=== PATIENT | male | born 1960 | race African-American/Black ===

== ENCOUNTER 2018-10-06 13:00 | Observation (INO) ==
[2018-10-06] MEDS ORDERED: NS 1,000 ML IV ONE (13:36)
[2018-10-06 13:37] LABS: URINE SOURCE CLEAN CATCH
[2018-10-06 13:41] LABS: BILIRUBIN URINE NEGATIVE (NEGATIVE); BLOOD URINE SMALL (NEGATIVE); COLOR YELLOW; GLUCOSE URINE TRACE mg/dL (NEGATIVE); KETONE URINE TRACE mg/dL (NEGATIVE); LEUKOCYTES URINE MODERATE (NEGATIVE); NITRITE URINE NEGATIVE (NEGATIVE); PROTEIN URINE 100 mg/dL (NEGATIVE); SP GRAVITY URINE 1.021; TURBIDITY URINE CLEAR (CLEAR); UROBILINOGEN URINE 4 mg/dL (NORMAL)
[2018-10-06 13:43] LABS: UR EPITHELIAL CELLS <10 /HPF (<10); URINE BACTERIA 4+ /HPF; URINE RBC <10 /HPF (<10); URINE WBC 20-40 /HPF (<10)
[2018-10-06] MEDS ORDERED: LEVAQUIN 500 MG/D5W 500 MG/100 ML IVPB IV ONE (13:43)
[2018-10-06] MEDS ORDERED: TYLENOL PO ONE (13:43)
--- NOTE | 2018-10-06 13:59 | Diag Imaging Result Doc PS360 ---
CHEST-1 VIEW - 10/06/2018 INDICATION: fever COMPARISON: None FINDINGS: There is cardiomegaly and pulmonary vascular congestion. No infiltrates or edema. No pneumothorax or pleural effusion. IMPRESSION: Cardiomegaly and pulmonary vascular congestion. Electronically signed by Vinicio Stokes 10/06/2018 1:57 PM
[2018-10-06 14:34] LABS: BASO# 0.02 X1000 (0.0-0.2); BASO% 0.2 % (0.0-0.8); EOS# 0.05 X1000 (0.0-0.7); EOS% 0.5 % (0.0-10.0); HEMATOCRIT 45.6 % (42.0-52.0); HEMOGLOBIN 15.6 g/dL (14.0-18.0); IMM GRAN# 0.02 X1000 (0.0-0.04); IMM GRAN% 0.2 % (0.0-0.5); LYMPH# 1.46 X1000 (1.2-3.4); LYMPH% 13.4 % (20.5-51.1); MCH 30.1 PG (27-31); MCHC 34.2 g/dL (33-37); MCV 87.9 FL (81-99); MONO# 0.69 X1000 (0.11-0.59); MONO% 6.3 % (1.7-9.3); MPV 10.1 FL (7.4-10.4); NEUT# 8.63 X1000 (1.4-6.5); NEUT% 79.4 % (42.2-75.2); PLT 210 X1000 (130-400); RBC 5.19 XMIL (4.7-6.1); RDW 13.8 % (11.5-14.5); WBC 10.87 X1000 (4.8-10.8)
[2018-10-06 15:01] LABS: ALB/GLOB RATIO 0.8; ALBUMIN 3.3 g/dL (3.5-5.0); CALCIUM 8.3 mg/dL (8.8-10.2); CREATININE 2.2 mg/dL (0.7-1.2); POTASSIUM 4.1 mmol/L (3.5-5.1); TOTAL BILIRUBIN 0.95 mg/dL (0.20-1.00); TOTAL PROTEIN 7.2 g/dL (6.3-8.3)
--- NOTE | 2018-10-06 15:26 | PROVIDER DOCUMENTATION ---
This chart was entered by Kelby Avery Scribe, acting as scribe for Cheng Hernandez MD. HPI-General Adult - General Chief Complaint: Male Stated Complaint: KIDNEY DISEASE/ISSUES Time Seen by Provider: 10/06/18 13:10 Source: patient Allergies/Adverse Reactions: Patient Allergies Allergy/AdvReac Type Severity Reaction Status Date / Time No Known Allergies Allergy Verified 10/06/18 14:45 - History of Present Illness -Gen Adult Nature of Presenting Problems: Pt is a 58 yo HIV+ ([employer] [facility]) M who presents to the ED with a CC of dysuria and fever. Pt states he began having pain when trying to urinate yesterday. Pt states the pain was so bad "It brought me to tears." Pt describes the pain as a burning sensation. Pt states a hx of stage three kidney disease and states he was diagnosed three years ago. Pt denies a hx of kidney infection, kidney stones, or any surgeries. Upon examination the pt had a irregular heart rate. Pt also complains of becoming SOB without any chest pain since yesterday. Location of Pain/Injury: reports: abdomen Pain Radiation: reports: no radiation Quality of Pain: reports: burning Severity: reports: mild Onset/Duration: reports: 24 hours ago Timing: reports: still present Associated Symptoms: reports: fever/chills (Fever), genitourinary problems, headaches, shortness of breath. denies: back/neck pain, chest pain, constipation, cough, diarrhea, loss of appetite, rash, sensory/motor loss, swelling/mass in abdomen, syncope, vomiting Similar Symptoms Previously?: Yes Recently seen or treated by another doctor?: No Review of Systems - Adult - REVIEW OF SYSTEMS - ADULT Constitutional: reports: see HPI, fever. denies: chills, fatique, night sweats, weight loss Eyes: reports: no symptoms reported Ears, Nose, Mouth & Throat: reports: no symptoms reported Cardiovascular: reports: no symptoms reported, see HPI Respiratory: reports: see HPI, shortness of breath. denies: cough, excessive sputum production, hemoptysis, wheezing Gastrointestinal: reports: see HPI, abdominal pain. denies: hematemesis, diarrhea, difficulty swallowing, nausea, rectal bleeding Genitourinary: reports: see HPI, dysuria, flank pain. denies: frequent UTI's, hematuria, urgency Musculoskeletal: reports: see HPI. denies: back pain, muscle weakness, neck pain Integumentary: reports: no symptoms reported Neurological: reports: see HPI, headache/migraines (Headache). denies: ataxia, dizziness/vertigo, loss of balance, numbness, paresthesia, slurred speech Psychiatric: reports: no symptoms reported Endocrine: reports: no symptoms reported Hematologic/Lymphatic: reports: no symptoms reported Allergic/Immunologic: reports: no symptoms reported All Other Systems: Reviewed and Negative Past History - Adult - PAST MEDICAL HISTORY-ADULT Review of Records: reports: Old Records Reviewed, Nursing Assessment Review, Medications Reviewed, Social history reviewed & non-contributory. Major Childhood Illnesses: reports: denies history Cardiovascular: reports: denies history Respiratory: reports: denies history Gastrointestinal: reports: denies history Obstetrical/Gynecological: reports: denies history Genitourinary: reports: denies history Musculoskeletal: reports: denies history Neurological: reports: denies history Endocrine/Immune: reports: denies history Other Conditions: reports: denies history - IMMUNIZATION STATUS Childhood Immunizations: See Nurse Assessment Flu Vaccine: See Nurse Assessment - FAMILY HISTORY Family History: reviewed, not pertinent Physical Exam-General - PHYSICAL EXAM-ADULT Initial Vital Signs Reviewed: Yes - CONSTITUTIONAL General Appearance: alert, mild distress - EYES Eyes: PERRL/EOMI - NECK Neck: non-tender, full range of motion. negative: C-spine tenderness, limited range of motion, lymphadenopathy, meningismus - RESPIRATORY Respiratory: chest non-tender, lungs clear, normal breath sounds, no pleuratic chest pain, no respiratory distress, no accessory muscle use. negative: resp iratory distress, decreased breath sounds, crackles, rales, stridor, wheezing - CARDIOVASCULAR Cardiovascular: normal peripheral pulses, no edema, no gallop, no JVD, no murmur . negative: JVD, bradycardia, diastolic murmur, friction rub - GASTROINTESTINAL (ABDOMEN) Abdominal Exam: soft, tenderness. negative: distended, guarding, rebound, hernia, mass, hepatomegaly, splenomegaly - MUSCULOSKELETAL Extremity: normal range of motion, non-tender, normal gait. negative: deformity, erythema, inflammation, pulse deficit, pedal edema - SKIN Integumentary: normal color, normal turgor, warm/dry. negative: abrasion(s), j aundice, laceration(s), mottled, pallor - NEUROLOGIC Neurologic: grossly normal, no motor/sensory deficits. negative: aphasia, EOM palsy, facial droop, focal weakness, motor weakness, sensory deficit - PSYCHIATRIC Psych/Mental Status: normal mood/affect, normal thought content, normal thought process, oriented x 3. negative: disoriented x 3, anxious, disheveled, depressed affect, paranoid Progress - PLAN OF CARE/RESULTS Progress/Plan/Lab Results: Vital Signs - 8 hr 10/06/18 13:06 Temperature 100.6 F H Pulse Rate 106 H Respiratory Rate 18 Blood Pressure 154/78 O2 Sat by Pulse Oximetry 95 Laboratory Results - last 24 hr 10/06/18 13:15 Urine Source CLEAN CATCH Urine Color YELLOW Urine Turbidity CLEAR Urine pH 6.0 Ur Specific Girard 1.021 Urine Protein 100 A Ur Glucose (Stick) TRACE Ur Ketones (Stick) TRACE A Urine Blood SMALL A Urine Nitrite NEGATIVE Urine Bilirubin NEGATIVE Urobilinogen Dipstick 4 A Urine Leukocytes MODERATE A Urine WBC (Auto) 20-40 A Urine RBC (Auto) <10 U Epithel Cells (Auto) <10 Urine Bacteria (Auto) 4+ Orders Category Date Time Status CHEST-1 VIEW [RAD] Stat Exams 10/06/18 13:35 Taken BLOOD CULTURE [BLDCUL] Stat Lab 10/06/18 13:35 Uncollected CBC WITH DIFF [HEME] Stat Lab 10/06/18 13:35 Uncollected COMPREHENSIVE METABOLIC PANEL [CHEM] Stat Lab 10/06/18 13:35 Uncollected LACTATE, PLASMA [CHEM] Stat Lab 10/06/18 13:35 Uncollected URINALYSIS W/POSS RFLX CULT [URINALYSIS] Stat Lab 10/06/18 13:15 Completed URINE CULTURE [RM] Routine Lab 10/06/18 13:52 Received 0.9% Sodium Chloride Inj [Ns] 1,000 ml Med 10/06/18 13:36 Active IV 999 mls/hr Acetaminophen [Tylenol] Med 10/06/18 13:43 Discontinued 650 mg PO NOW ONE Levofloxacin 500 mg/D5w [Levaquin 500 mg/D5w] Med 10/06/18 13:43 Active 500 mg in 100 ml IV NOW Result Diagrams: 10/06/18 14:23 10/06/18 14:23 - REASSESSMENT Reassessment #1 Time Reassessed: 15:24 Status: unchanged (labs confirm UTI, no evidence of sepsis per lactate, creat likely baseline per pt PMHx: 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 No infiltrates or edema. No pneumothorax or pleural effusion. IMPRESSION: Cardiomegaly and pulmonary vascular congestion. Electronically signed by Vinicio Stokes 10/06/2018 1:57 PM 10/06/18 1357 Interpreting Physician: Vinicio Stokes MD Dictated Date/Time: 10/06/18 1357 cc: Cheng Hernandez MD; None,PCP) Impression: See EMR Report - CONSULTS/PCP/HOSPITALIST Notification #1 *Consult/PCP/Hospitalist*: Brian (Schilling) Consult Disposition: Admit Departure - Departure Date of Disposition Decision: 10/06/18 Time of Disposition Decision: 15:25 DIAGNOSIS: Pyelonephritis, HIV (human immunodeficiency virus infection) Disposition: ADMITTED INPATIENT 09 Certified Medical Emergency: Emergent Condition: Stable Referrals and Follow-Ups: None,PCP [Primary Care Provider] - - Critical Care Note This patient required my direct & personal management of CC.: No Attestation - Physician/ CHRISTA Attestation The physician spent face to face time with patient:: Yes Advanced Practice Provider documentation review:: Supervising physician onsite and consulted in the evaluation and care of this patient. The physician did have a face to face encounter with the patient. This chart was documented by the indicated scribe, (Kelby Avery, Omi) and accurately reflects the services I performed and decisions made by me, Cheng Hernandez MD, as attested by the provider's signature.
[2018-10-06] MEDS ORDERED: NS 1,000 ML IV SCH (16:19)
[2018-10-06] MEDS ORDERED: NITROGLYCERIN TOP ONE (16:29)
[2018-10-06 16:41] LABS: HEMOGLOBIN A1C 5.2 % (4.8-6.0)
[2018-10-06 17:06] LABS: UR SODIUM 48 mmoll
[2018-10-06 17:11] LABS: UR CREAT RANDOM < 4.2 mg/dL (14-26); UR PROT RANDOM < 4.0 mg/dL
[2018-10-06 17:27] LABS: CK INDEX 0.3 (0.0-2.5); CK-MB 1.29 ng/mL (0.0-5.0)
[2018-10-06] MEDS: ASPIRIN PO SCH (17:32)
--- NOTE | 2018-10-06 17:47 | HISTORY AND PHYSICAL ---
PRIMARY CARE PROVIDER: In [place], [place]. CHIEF COMPLAINT: Dysuria and pelvic pain. HISTORY OF PRESENT ILLNESS: Mr. Wolf is a 58-year-old male with a history of HIV, on daily retroviral therapy, hypertension, morbid obesity, CKD 3, who comes to the hospital with fatigue, fever, chills, dysuria, oliguria, and foul-smelling urine. Symptoms began yesterday. He started having burning on urination and later on in the day he noticed decreased urine output every time he tried to urinate. He denies any overt flank pain. He does report fever and chills. He did have some back pain but it was two weeks ago. He denies any urethral discharge. He denies chest pain but does report some shortness of breath, especially with exertion. He also has some increasing lower extremity edema that he has not noticed before. On physical exam, he does have some lower extremity edema and some crackles in the bases of his lungs. He denies any heart history to speak of. He is from [place], on his way to [place], living with family right now in [place]. He does have a fever and some tachycardia but his hemodynamics are stable. We are going to admit him for further treatment and evaluation. PAST MEDICAL HISTORY: 1. HIV on retroviral therapy. 2. Hypertension. 3. CKD 3, per his report. 4. Morbid obesity. SURGICAL HISTORY: He has had right middle finger surgery. SOCIAL HISTORY: He denies tobacco or drug use. He drinks alcohol occasionally. He is and has children. He is currently living in [place] but is on his way to [place]. He is from [place], [place]. REVIEW OF SYSTEMS: A 14-point review of systems was obtained and found to be negative with the exception of the HPI. PHYSICAL EXAMINATION: VITAL SIGNS: Blood pressure is 140/96, heart rate 103, respiratory rate is 26, O2 saturation 95% on room air, temperature 101.5. GENERAL: This is a morbidly obese 58-year-old male lying in hospital bed in no acute distress. NEUROLOGICAL: He is awake and alert. Follows commands. No focal deficits. HEENT: Head is atraumatic and normocephalic. Pupils are equal, round, and reactive to light. Oral mucosa is somewhat dry. NECK: Trachea is midline. There is no JVD. CHEST: Diminished at bases with crackles in the lung bases. CARDIOVASCULAR: Tachycardic and slightly irregular. S1 and S2 is noted. No appreciable murmurs. GASTROINTESTINAL: Soft, nondistended, nontender. EXTREMITIES: 1+ bilateral edema. Pulses diminished but palpable. DIAGNOSTIC DATA: Chest x-ray shows cardiomegaly and pulmonary edema. WBC 10.87, hemoglobin 15.6, hematocrit 45.6, platelet count 210. Sodium 133, potassium 4.1, chloride 100, CO2 26, anion gap 7, BUN 17, creatinine 2.2, glucose 164, calcium 8.3, albumin 3.3. UA does show 20-40 WBCs, moderate leukocytes, and 4+ bacteria. ASSESSMENT AND PLAN: 1. Sepsis: Patient meets criteria with fever, tachycardia, source of urinary tract infection. Lactic acid is within normal limits. He is actually slightly hypertensive. He is volume overloaded on physical exam, so we will certainly hold off on any fluids. Continue antibiotics. We have switched him to Rocephin and will monitor closely. 2. Urinary tract infection: Cultures are pending. Rocephin has been added. Will check a renal ultrasound to make sure there are no stones or pyelonephritis. 3. Apparent congestive heart failure: He denies any history of coronary disease or congestive heart failure. He has clear cardiomegaly and pulmonary edema with lower extremity edema and increasing dyspnea on exertion. Will give him some Lasix now, trend his cardiac enzymes, check and EKG and echocardiogram. See if we can get any history from doctors in [place] to see if this is new onset. 4. Chronic kidney disease: He reports his creatinine is around 1.5. It is now 2.2. We are going to check urine electrolytes and check renal ultrasound. Given the probability of his congestive heart failure, need to make sure there is not worsening oliguria secondary to possible cardiorenal syndrome. Will monitor that closely. Will consult Dr. Esparza if needed. 5. Human immunodeficiency virus positive: Will continue his home medications once reconciled. 6. Hypertension: Continue home medications once reconciled. 7. Deep venous thrombosis prophylaxis with subcutaneous heparin. Further recommendations to follow. Dictated by ELVIA Connelly for Yakov Mcpherson MD cc: ELVIA Connelly MD
[2018-10-06] MEDS: DUONEB (A & A) INH SCH ×2 (19:29→23:23)
[2018-10-06] MEDS: ROCEPHIN 1 GM in NS 50 ML IV SCH (20:46)
[2018-10-06] MEDS: NS 1,000 ML IV SCH (20:46)
[2018-10-06] MEDS: TYLENOL PO PRN (21:46)
[2018-10-07 02:04] LABS: CK INDEX 0.4 (0.0-2.5); CK-MB 1.43 ng/mL (0.0-5.0)
[2018-10-07] MEDS: DUONEB (A & A) INH SCH ×6 (03:44→22:37)
--- NOTE | 2018-10-07 06:23 | Diag Imaging Result Doc PS360 ---
US RENAL 2 (RETROPER) COMPLETE - 10/06/2018 INDICATION: doroteo on ckd, oliguria TECHNIQUE: COMPARISON: None FINDINGS: There is a right renal cyst measuring 3.4 x 2.5 cm. The left kidney is normal in echotexture. There is no hydronephrosis. The urinary bladder is normal. The right kidney measures 10 x 5.4 x 6 cm. The left kidney measures 10.6 x 6 x 4.3 cm. IMPRESSION: Simple right renal cyst. No acute disease. Electronically signed by Vinicio Stokes 10/07/2018 6:21 AM
[2018-10-07 07:20] LABS: BASO# 0.03 X1000 (0.0-0.2); BASO% 0.5 % (0.0-0.8); EOS# 0.07 X1000 (0.0-0.7); EOS% 1.2 % (0.0-10.0); HEMATOCRIT 46.1 % (42.0-52.0); HEMOGLOBIN 15.4 g/dL (14.0-18.0); MCH 29.6 PG (27-31); MCHC 33.4 g/dL (33-37); MCV 88.7 FL (81-99); MONO# 0.76 X1000 (0.11-0.59); MONO% 12.6 % (1.7-9.3); MPV 10.1 FL (7.4-10.4); NEUT# 4.25 X1000 (1.4-6.5); NEUT% 70.7 % (42.2-75.2); PLT 203 X1000 (130-400); WBC 6.01 X1000 (4.8-10.8)
[2018-10-07 07:58] LABS: CALCIUM 8.2 mg/dL (8.8-10.2); CREATININE 2.3 mg/dL (0.7-1.2); POTASSIUM 3.5 mmol/L (3.5-5.1)
[2018-10-07 08:38] LABS: CK INDEX 0.5 (0.0-2.5); CK-MB 1.46 ng/mL (0.0-5.0)
[2018-10-07] MEDS: LOPRESSOR PO SCH ×2 (09:16→20:09)
[2018-10-07] MEDS: ASPIRIN PO SCH (09:17)
[2018-10-07] MEDS: PATIENT'S OWN MED PO SCH (09:17)
--- NOTE | 2018-10-07 09:17 | Diag Imaging Result Doc PS360 ---
EXAM: CHEST-PORTABLE HISTORY: SOB TECHNIQUE: Portable chest single view COMPARISON: 10/06/2018 FINDINGS: The lungs are well expanded. The heart is mildly enlarged. The vessels are slightly distended. There are no infiltrates. No effusion identified. IMPRESSION: Mild cardiomegaly with mild central vascular prominence. Electronically signed by Jagjit Shi 10/07/2018 9:14 AM
[2018-10-07] MEDS: NS 1,000 ML IV SCH (09:22)
--- NOTE | 2018-10-07 14:32 | PROGRESS NOTE ---
DATE: 10/07/2018 SUBJECTIVE: Patient is feeling better today. He is still having some burning sensation during urination. His CK level is better. Urine culture showed gram-negative dolly. Renal ultrasound did not show any hydronephrosis or obstruction. It showed a simple right renal cyst but no acute disease. I will stop the fluids today since he is tolerating p.o. He has mild rales at the bases. X-ray showed cardiomegaly with mild central vascular prominence. I will get an echocardiogram. OBJECTIVE: Vital Signs: Temperature 98 degrees, pulse 94, respiratory rate 20, blood pressure 138/75, oxygen saturation 96 on room air. HEENT: Head normocephalic. No trauma. PERRLA. Neck: Supple. No JVD. No masses. Central trachea. Chest: Decreased breath sounds at the bases with some rales. Abdomen: Soft, protuberant, nontender, nondistended. No hepatosplenomegaly. Extremities: Trace edema. No clubbing. No cyanosis. Neurological Examination: The patient is alert and oriented x3. No focal deficits. Laboratory: WBCs 6, hemoglobin 15.4, hematocrit 46.1, platelets 203,000. Sodium 139, potassium 3.5, chloride 101, bicarbonate 28, BUN 16, creatinine 2.3, glucose 108, calcium 8.2, magnesium 2. CK down from 454 to 296. Troponin negative x3. ASSESSMENT AND PLAN: 1. Sepsis. This patient met criteria for sepsis with fever, tachycardia, and urinary tract infection. Lactic acid within normal limits. Continue with Rocephin. We have a positive urine culture that showed gram-negative rods. 2. Urinary tract infection with a positive culture that showed gram-negative rods. He has been placed on Rocephin. We will continue to monitor. Renal ultrasound did not show any acute abnormality. No hydronephrosis but showed a simple cyst. 3. This patient has cardiomegaly on the images. We will get an echocardiogram. He has a history of hypertension and chronic kidney disease as well. He has some rales at the bases but definitely we will need an echocardiogram to rule out any other pathology. 4. Chronic kidney disease. As per the patient, his baseline is between 1.5 to 2.5. Today, it is 2.3. As per the patient, at the beginning, his urine was really dark, [employer] like, but now is clear. We will continue to monitor. 5. Human immunodeficiency virus, well controlled. Continue with his home medication. 6. Hypertension. Continue with metoprolol. Also, he is on amlodipine and hydrochlorothiazide which probably we will restart soon. 7. Deep vein thrombosis prophylaxis with subcutaneous heparin. 8. Rhabdomyolysis. Upon admission his CK level was more than 400, as per the patient he has been moving/working with furniture 2 or 3 days ago and was really hot day, he started noticing dark urine and also dysuria, he received some IV fluids already, his urine is more clear, much better. cc: Yakov Mcpherson MD MTDD
--- NOTE | 2018-10-07 16:25 | ECHO REPORT ---
ORDER DATE: 10/07/2018 INDICATION: CHF, hypertension, HIV, morbid obesity. FINDINGS: 1. The right atrium is mildly enlarged at 4 cm. 2. Mild tricuspid regurgitation. RV systolic pressure of 52. 3. Normal RV size and systolic function on somewhat difficult views of the right ventricle. 4. Mild pulmonic insufficiency. 5. [id number] left atrial enlargement with a volume index of 34 and a dimension of 4 cm. 6. No mitral prolapse. Mild mitral regurgitation. No clear evidence of mitral stenosis. 7. Normal LV size, end-diastolic dimension of 5.2. Moderate left ventricular hypertrophy with an intraventricular septal wall thickness 1.5 cm. Borderline normal to mildly reduced LV systolic function with an estimated EF of 45%-50% range. 8. The aortic valve opens well. It is trileaflet. No evidence of stenosis or insufficiency. 9. The aorta appears normal visualized segments. 10. No pericardial effusion is identified. cc: MD Yakov Malave MD
[2018-10-07] MEDS: ROCEPHIN 1 GM in NS 50 ML IV SCH (20:09)
[2018-10-07] MEDS: TYLENOL PO PRN (20:10)
[2018-10-08] MEDS: DUONEB (A & A) INH SCH ×3 (03:56→11:03)
[2018-10-08] MEDS: PATIENT'S OWN MED PO SCH (08:22)
[2018-10-08] MEDS: ASPIRIN PO SCH (08:22)
[2018-10-08] MEDS: LOPRESSOR PO SCH (08:22)
[2018-10-08 08:24] LABS: CALCIUM 8.4 mg/dL (8.8-10.2); CREATININE 1.9 mg/dL (0.7-1.2); MAGNESIUM 1.9 mg/dL (1.5-2.7); POTASSIUM 3.6 mmol/L (3.5-5.1)
[2018-10-08 08:56] LABS: CK INDEX 0.9 (0.0-2.5); CK-MB 2.2 ng/mL (0.0-5.0)
[2018-10-08] MEDS ORDERED: HYDROCHLOROTHIAZIDE PO SCH (09:00)
[2018-10-08 11:27] VITALS: BP 118/74
--- NOTE | 2018-10-09 22:03 | DISCHARGE SUMMARY ---
ADMISSION DATE: 10/06/2018 DISCHARGE DATE: 10/08/2018 CONSULTATIONS: None. PERTINENT PROCEDURES: 1. Chest x-ray: Cardiomegaly with pulmonary vascular congestion. 2. Echocardiogram showed an EF of 45 to 50 percent. DISCHARGE DIAGNOSES: 1. Sepsis. The patient initially met criteria for sepsis with fever, tachycardia, urinary tract infection. Lactic acid was within normal limits. The patient was initiated on IV Rocephin with a positive urine culture that showed gram-negative rods, resolved. 2. Urinary tract infection with positive culture that grew gram-negative rods. The patient was on Rocephin. His renal ultrasound did not show any acute abnormality. No hydronephrosis, but showed a simple cyst. 3. Cardiomegaly on imaging. Echocardiogram showed an EF of 45 to 50 percent. 4. Chronic kidney disease. Patient's baseline is between 1.5 to 2.5. On the day of discharge, his creatinine was down to 1.9. His urine initially was cola colored and it is now clearing. 5. Human immunodeficiency virus, well controlled. Continue home medications. 6. Hypertension. Continue metoprolol, Norvasc, and hydrochlorothiazide. 7. Rhabdomyolysis. Upon admission, his CK level was more than 400. Per the patient, he had been moving working with furniture 2 or 3 days prior. He had got really hot and he started noticing his urine was dark with dysuria. He was rehydrated with IV fluids. Again, his urine is more clear and his CKs were trending down. HOSPITAL COURSE: Briefly, Mr. Wolf is a 58-year-old male with a history of HIV on daily retroviral therapy, hypertension, morbid obesity, chronic kidney disease stage 3. He came to the hospital with fatigue, fever, chills, dysuria, oliguria and foul smelling urine. His symptoms had begun the day prior. It started with burning upon urination and later in the day he noticed a decrease in his urinary output. He initially ruled in for sepsis with fever, tachycardia, and a positive urine culture. His lactic acid was normal. He was found to be in rhabdomyolysis with CK over 400 as well as a elevation in his chronic kidney disease. He was initiated on IV Rocephin and IV fluids throughout his admission. His CKs continued to trend down. His urine that was dark became more clear. His urine culture was growing out gram-negative rods and he was discharged home on Omnicef. He has had a stable hospital course and will be discharged back home from family. Initially, Mr. Wolf is from [place]. He stopped in [place] to stay with family. He is traveling on his way to [place]. VITAL SIGNS: At time of discharge, temperature is 98.9 degrees, heart rate 87, respirations 18, blood pressure 118/74, O2 is 97% on room air. DISCHARGE DIET: Healthy heart. DISCHARGE MEDICATIONS: 1. GENVOYA 1 tab p.o. daily. 2. Lopressor 12.5 mg p.o. b.i.d. 3. Norvasc 10 mg p.o. daily. 4. Omnicef 300 mg p.o. b.i.d. FOLLOWUP: Mr. Wolf was discharged back home with family. He is to continue to take all medications and antibiotics as prescribed. She can return to the ED or call 911 for any worsening of symptoms. Dictated by ELVIA Wynn for Darryl Greene MD
== END 2018-10-08 13:04 | disposition home or self-care (01) ==
LOC: ED 13:00 → 3N 13:00 → SUATTDRO 16:32
PROVIDERS: ATTEND Internal Medicine
CPT/HCPCS: 71010; 71045; 76770; 80048; 80053; 81001; 82550; 82553; 82570; 83036; 83605; 83735; 83880; 83935; 84156; 84300; 84484; 85025; 86360; 87040; 87077; 87088; 87186; 87205; 93005; 93306; 94640; A9270; J0696; J1956; J7030